=== PATIENT | female | born 1990 | race Caucasian/White ===

== ENCOUNTER 2024-12-24 23:32 | Emergency (ER) | payer OTHER ==
[~2024-12-24] VITALS: Ht 167.6 cm; Wt 160.0 kg
[2024-12-25] MEDS ORDERED: BENZTROPINE1 MG PO (00:02)
[2024-12-25] MEDS ORDERED: EMGALITY120 MG/1 M SQ (00:03)
[2024-12-25] MEDS ORDERED: ANASPAZ0.125 M1 PO (00:03)
[2024-12-25] MEDS ORDERED: SINGULAIR PO (00:03)
[2024-12-25] MEDS ORDERED: NORTRIPTYLINE H25 M1 PO (00:04)
[2024-12-25] MEDS ORDERED: MINIPRESS 1M1 MG/CAP (00:05)
[2024-12-25] MEDS ORDERED: PANTOPRAZOLE SO40 MG PO (00:05)
[2024-12-25] MEDS ORDERED: VRAYLAR4.5 MG PO (00:06)
[2024-12-25] MEDS ORDERED: COMPAZINE10 M2 PO (00:07)
[2024-12-25] MEDS ORDERED: ATIVAN0.5 MG PO (00:15)
[2024-12-25] MEDS ORDERED: TESTONE CI200 MG/1 M IM (00:15)
[2024-12-25] MEDS ORDERED: OXYCODONE HCL10 M1 PO (00:16)
[2024-12-25] MEDS ORDERED: ROBAXIN 75750 MG/TA1 PO (00:17)
[2024-12-25] MEDS ORDERED: SODIUM BIC650 MG/TAB PO (00:17)
[2024-12-25 00:29] LABS: URINE APPEARANCE SLIGHTLY CLOUDY (CLEAR); URINE COLOR ORANGE (YELLOW)
[2024-12-25 00:30] LABS: URINE BILIRUBIN NEGATIVE (NEGATIVE); URINE BLOOD 3+ (NEGATIVE); URINE GLUCOSE TRACE (NEGATIVE); URINE KETONE NEGATIVE (NEGATIVE); URINE LEUKOCYTE ESTERASE 3+ (NEGATIVE); URINE NITRATE POSITIVE (NEGATIVE); URINE PROTEIN(semi-quant) 1+ (NEGATIVE)
[2024-12-25 00:34] LABS: URINE WBC >50 /hpf (0-3)
[2024-12-25 00:37] LABS: BASO # 0.01 K/mm3 (0.02-0.10); EOS # 0.18 K/mm3 (0.04-0.40); EOS % 1.7 % (1.0-5.0); HEMATOCRIT 46.3 % (37.0-47.0); HEMOGLOBIN 14.9 g/dL (12.5-16.0); LYMPH# 2.17 K/mm3 (1.50-4.00); MEAN CELL VOLUME 92 fl (78-100); MEAN CORPUSCULAR HEMOGLOBIN 30 pg (27-31); MEAN CORPUSCULAR HGB CONC 32 g/dL (33-37); MEAN PLATELET VOLUME 9.6 fl (7.4-10.4); MONO # 0.56 K/mm3 (0.20-0.80); NEU # 7.67 K/mm3 (1.40-6.50); PLATELET COUNT 274 K/mm3 (130-400); RED BLOOD COUNT 5.04 M/mm3 (4.10-5.30); WHITE BLOOD COUNT 10.6 K/mm3 (4.8-10.8)
[2024-12-25 00:45] LABS: ALBUMIN 3.8 g/dL (3.5-5.0); TOTAL PROTEIN 7.4 g/dL (6.4-8.3)
[2024-12-25 00:49] LABS: TOTAL BILIRUBIN 0.4 mg/dL (0.2-1.2)
[2024-12-25] MEDS ORDERED: Ondansetron 4 MG/2 ML VIAL IV ONE (01:00)
[2024-12-25] MEDS ORDERED: cefTRIAXone 1 G in Water For Injection,Sterile 10 ML IV ONE (01:00)
[2024-12-25] MEDS ORDERED: NS 1,000 ML IV SCH (01:00)
[2024-12-25] MEDS ORDERED: AMOXICILLIN AND1 TA2 PO (01:09)
[2024-12-25] MEDS ORDERED: oxyCODONE 5 MG TAB PO ONE (01:15)
[2024-12-25] MEDS ORDERED: Ketorolac 30 MG/ML VIAL IV ONE (01:15)
[2024-12-25 01:58] VITALS: BP 131/68
[2025-01-03] MEDS ORDERED: FLOMAX0.4 MG PO (22:47)
[2025-01-03] MEDS ORDERED: CIPRO500 M1 PO (23:06)
== END 2024-12-25 01:58 | disposition home or self-care (01) ==
LOC: ED 23:32
PROVIDERS: Nurse Practitioner
DX: N39.0 Urinary tract infection, site not specified (principal); E66.9 Obesity, unspecified; Z87.442 Personal history of urinary calculi; Z90.49 Acquired absence of other specified parts of digestive tract; Z96.0 Presence of urogenital implants; Z87.891 Personal history of nicotine dependence; Z87.448 Personal history of other diseases of urinary system
CPT/HCPCS: J0696; J1885; J2405; J7030